=== PATIENT | female | born 1970 ===

== ENCOUNTER 2016-06-13 16:19 | Emergency (ER) | payer OTHER ==
[2016-06-13 16:19] VITALS: BMI 41.1
[2016-06-13 16:41] VITALS: BP 154/80; RESP 16; TEMP 98; O2SAT 99
[2016-06-13] MEDS ORDERED: Sodium Chloride 0.9% 1,000 ML IV STA (17:03)
[2016-06-13 17:30] LABS: BASO # 0.1 K/uL (0.0-0.2); EOS # 0.1 K/uL (0.0-0.7); EOS % 0.6 % (0.0-4.0); HEMATOCRIT 40.2 % (34.0-47.0); LYMPH # 2.2 K/uL (1.0-4.3); LYMPH % 19.8 % (20.0-40.0); MEAN CELL VOLUME 84.4 fl (81.0-99.0); MEAN CORPUSCULAR HEMOGLOBIN 27.5 pg (27.0-31.0); MEAN CORPUSCULAR HGB CONC 32.6 g/dL (33.0-37.0); MEAN PLATELET VOLUME 9.2 fl (7.2-11.7); MONO # 0.5 K/uL (0.0-0.8); MONO % 4.8 % (0.0-10.0); NEUT # 8.1 K/uL (1.8-7.0); NEUT % 73.8 % (50.0-75.0); RED CELL DISTRIBUTION WIDTH 13.6 % (11.5-14.5); WHITE BLOOD COUNT 10.9 K/uL (4.8-10.8)
[2016-06-13 17:42] LABS: ALB/GLOB RATIO 1.2 (1.0-2.1); ALKALINE PHOSPHATASE 62 U/L (38-126); ALT/SGPT 27 U/L (9-52); AST/SGOT 28 U/L (14-36); BILIRUBIN,TOTAL 0.7 mg/dl (0.2-1.3); BLOOD UREA NITROGEN 13 mg/dl (7-17); CALCIUM 9.4 mg/dL (8.4-10.2); CARBON DIOXIDE 26 mmol/L (22-30); CHLORIDE 102 mmol/L (98-107); GFR AFRICAN-AMERICAN > 60; GLUCOSE,RANDOM 120 mg/dL (65-105); SODIUM 142 mmol/l (132-148); TOTAL PROTEIN 7.7 G/DL (6.3-8.2)
[2016-06-13 17:50] LABS: RBC URINE 1 /hpf (0-3); URINE BILIRUBIN NEGATIVE (NEGATIVE); URINE BLOOD NEGATIVE (NEGATIVE); URINE COLOR YELLOW (YELLOW); URINE GLUCOSE (UA) NEG (Normal); URINE KETONE NEGATIVE (NEGATIVE); URINE LEUKOCYTE ESTERASE NEG Leu/uL (Negative); URINE PROTEIN NEGATIVE (NEGATIVE); URINE UROBILINOGEN 0.2-1.0 mg/dL (0.2-1.0); WBC URINE 1 /hpf (0-5)
--- NOTE | 2016-06-13 17:59 | CT ---
PROCEDURE: CT HEAD WITHOUT CONTRAST. HISTORY: R side headache, facial pain COMPARISON: None available. TECHNIQUE: Axial computed tomography images were obtained through the head/brain without intravenous contrast. Radiation dose: Total exam DLP = 774 mGy-cm. This CT exam was performed using one or more of the following dose reduction techniques: Automated exposure control, adjustment of the mA and/or kV according to patient size, and/or use of iterative reconstruction technique. FINDINGS: HEMORRHAGE: No intracranial hemorrhage. BRAIN: No mass effect or edema. No atrophy or chronic microvascular ischemic changes. VENTRICLES: Unremarkable. No hydrocephalus. CALVARIUM: Unremarkable. PARANASAL SINUSES: Unremarkable as visualized. No significant inflammatory changes. MASTOID AIR CELLS: Unremarkable as visualized. No inflammatory changes. OTHER FINDINGS: None. IMPRESSION: Normal CT of the Head.
--- NOTE | 2016-06-13 18:53 | ED PDOC ---
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 Denies fever, weakness, change in speech, vision, sensation or balance, or chest pain, SOB or palpitations. Denies dental pain, eye pain or swelling or redness to eye. Past Medical History Reviewed: Historical Data, Nursing Documentation, Vital Signs Vital Signs: Last Vital Signs Temp 98.0 F 06/13/16 16:32 Pulse 93 H 06/13/16 16:32 Resp 16 06/13/16 16:32 BP 154/80 H 06/13/16 16:32 Pulse Ox 99 06/13/16 16:32 - Medical History PMH: Asthma, GERD - Surgical History Surgical History: No Surg Hx - Family History Family History: States: Unknown Family Hx - Living Arrangements Living Arrangements: With Family - Social History Current smoker - smoking cessation education provided: No Alcohol: None - Home Medications Home Medications: Ambulatory Orders Medication Instructions Recorded traMADol [Ultram] 50 mg PO Q8 #10 tab 03/01/16 traMADol [Ultram] 50 mg PO TID PRN #12 tab 06/13/16 - Allergies Allergies/Adverse Reactions: Allergies Allergy/AdvReac Type Severity Reaction Status Date / Time ibuprofen [From Motrin] Allergy NAUSEA Verified 01/08/16 11:44 Review of Systems ROS Statement: Except As Marked, All Systems Reviewed And Found Negative Constitutional: Negative for: Fever, Chills Eyes: Negative for: Pain, Vision Change ENT: Positive for: Other (facial burning, no rash). Negative for: Ear Pain, Nose Pain, Nose Congestion, Mouth Pain, Throat Pain Cardiovascular: Negative for: Chest Pain, Palpitations Respiratory: Negative for: Cough, Shortness of Breath Gastrointestinal: Negative for: Nausea, Vomiting, Abdominal Pain Genitourinary Female: Negative for: Dysuria, Frequency Musculoskeletal: Negative for: Neck Pain, Shoulder Pain Skin: Negative for: Rash, Lesions, Jaundice Neurological: Positive for: Headache, Dizziness. Negative for: Weakness, Numbness, Incoordination, Change in Speech, Confusion, Seizures Psych: Negative for: Anxiety, Depression Physical Exam - Reviewed Nursing Documentation Reviewed: Yes Vital Signs Reviewed: Yes - Physical Exam Appears: Positive for: Well, Non-toxic, No Acute Distress Head Exam: Positive for: ATRAUMATIC, NORMAL INSPECTION, NORMOCEPHALIC Skin: Positive for: Normal Color, Warm, DRY Eye Exam: Positive for: Normal appearance, EOMI, PERRL, Other (no periorbital edema, erythema, cornea no clouding or lesions ). Negative for: Periorbital swelling, Periorbital tenderness, Conjunctival injection ENT: Positive for: Normal ENT Inspection Neck: Positive for: Normal, Painless ROM Cardiovascular/Chest: Positive for: Regular Rate, Rhythm Respiratory: Positive for: CNT, Normal Breath Sounds Gastrointestinal/Abdominal: Positive for: Normal Exam, Bowel Sounds, Soft. 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 Negative for: Motor/Sensory Deficits - Laboratory Results Result Diagrams: 06/13/16 17:20 06/13/16 17:20 - ECG ECG: Positive for: Interpreted By Me ECG Rhythm: Positive for: Normal QRS, Normal ST Segment, Sinus Rhythm. Negative for: ST/T Changes Rate: 81 O2 Sat by Pulse Oximetry: 99 Pulse Ox Interpretation: Normal Medical Decision Making Medical Decision Making: Workup initiated for atypical headache. CT brain performed and report reviewed, normal brain per radiologist. labs and UA reviewed, unremarkable. Given tylenol and IVF with complete resolution of symptoms. Explained via healthcare interpreter early impressions, watch for development of herpetic rash to face or scalp- none present currently. Drink plenty of fluids, followup PMD 2-3 days. Disposition - Clinical Impression Clinical Impression: Headache, Facial burning - Patient ED Disposition Is Patient to be Admitted: No Counseled Patient/Family Regarding: Studies Performed, Diagnosis, Need For Followup, Rx Given - Disposition Referrals: Arsh Gómez MD [Staff Provider] - Disposition: Routine/Home Disposition Time: 18:57 Condition: STABLE Additional Instructions: See neurologist for further testing if symptoms persist. See PMD or return to ER for development of any rash, eye pain, change in vision/ speech or strength. Prescriptions: traMADol [Ultram] 50 mg PO TID PRN #12 tab PRN Reason: Pain, Moderate (4-7) Instructions: General Headache (ED), Fatigue (ED), Weakness (GEN) Print Language: AFGHAN
[2016-06-13 18:57] VITALS: PULSE 81
--- NOTE | 2016-06-14 20:26 | CARD ---
APPROVED REPORT EKG Measurement Heart [id number] <Conclusion> Normal sinus rhythm Normal ECG
== END 2016-06-13 19:03 | disposition home or self-care (01) ==
LOC: H.ER 16:19
DX: R51 Headache (principal)

== ENCOUNTER 2016-09-11 10:24 | Emergency (ER) | payer OTHER ==
[2016-09-11 10:35] VITALS: TEMP 97.6
[2016-09-11] MEDS ORDERED: Sodium Chloride 0.9% 1,000 ML IV STA (11:12)
[2016-09-11 11:54] LABS: MEAN CORPUSCULAR HEMOGLOBIN 27.9 pg (27.0-31.0); MEAN CORPUSCULAR HGB CONC 33.2 g/dL (33.0-37.0); RBC 4.66 Mil/uL (3.80-5.20); WHITE BLOOD COUNT 6.1 K/uL (4.8-10.8)
[2016-09-11 12:05] LABS: ALB/GLOB RATIO 1.3 (1.0-2.1); ALT/SGPT 48 U/L (9-52); AST/SGOT 23 U/L (14-36); BLOOD UREA NITROGEN 18 mg/dl (7-17); CALCIUM 9.1 mg/dL (8.4-10.2); GFR AFRICAN-AMERICAN > 60; GFR NON-AFRICAN AMERICAN > 60; LIPASE 133 U/L (23-300)
[2016-09-11] MEDS ORDERED: Alum-Mag Hydrox-Simethicone Susp (30 mL) PO STA (12:33)
--- NOTE | 2016-09-11 12:36 | ED PDOC ---
HPI: Abdomen Time Seen by Provider: 09/11/16 10:36 Chief Complaint (Nursing): Abdominal Pain Chief Complaint (Provider): Abdominal pain, nausea History Per: Patient History/Exam Limitations: no limitations Onset/Duration Of Symptoms: Days Outside of [place] travel?: No Current Symptoms Are (Timing): Still Present Severity: Moderate Location Of Pain/Discomfort: Epigastric, LUQ Quality Of Discomfort: Dull, Cramping Associated Symptoms: Nausea, Loss Of Appetite, Other (Pt states she has been tolerating juice ). denies: Fever, Vomiting Exacerbating Factors: None Alleviating Factors: None Last Bowel Movement: Yesterday Additional Complaint(s): PT denies similar in the past. No fever/chills. PT is tolerating liquids Past Medical History Reviewed: Historical Data, Nursing Documentation, Vital Signs Vital Signs: Last Vital Signs Temp 97.6 F 09/11/16 10:34 Pulse 78 09/11/16 10:34 Resp 20 09/11/16 10:34 BP 153/84 H 09/11/16 10:34 Pulse Ox 99 09/11/16 12:36 - Medical History PMH: Asthma, GERD - Surgical History Surgical History: No Surg Hx - Family History Family History: States: Unknown Family Hx - Living Arrangements Living Arrangements: With Family - Social History Current smoker - smoking cessation education provided: No Alcohol: None Drugs: Denies - Home Medications Home Medications: Ambulatory Orders Medication Instructions Recorded traMADol [Ultram] 50 mg PO Q8 #10 tab 03/01/16 traMADol [Ultram] 50 mg PO TID PRN #12 tab 06/13/16 Cyclobenzaprine [Cyclobenzaprine 10 mg PO TID PRN #20 tab 08/18/16 HCl] predniSONE [Prednisone] 20 mg PO BID #10 tab 08/18/16 traMADol [Ultram] 50 mg PO TID PRN #15 tab 08/18/16 Famotidine [Pepcid] 20 mg PO BID #28 tab 09/11/16 Ondansetron [Zofran Odt] 4 mg PO Q4H PRN #10 odt 09/11/16 - Allergies Allergies/Adverse Reactions: Allergies Allergy/AdvReac Type Severity Reaction Status Date / Time ibuprofen [From Motrin] Allergy NAUSEA Verified 09/11/16 10:39 Review of Systems ROS Statement: Except As Marked, All Systems Reviewed And Found Negative Gastrointestinal: Positive for: Nausea, Abdominal Pain Physical Exam - Reviewed Nursing Documentation Reviewed: Yes Vital Signs Reviewed: Yes - Physical Exam Appears: Positive for: Well, Non-toxic, No Acute Distress Head Exam: Positive for: ATRAUMATIC, NORMAL INSPECTION, NORMOCEPHALIC Skin: Positive for: Normal Color, Warm, DRY Eye Exam: Positive for: Normal appearance ENT: Positive for: Normal ENT Inspection Neck: Positive for: Normal, Painless ROM Cardiovascular/Chest: Positive for: Regular Rate, Rhythm Respiratory: Positive for: CNT, Normal Breath Sounds Gastrointestinal/Abdominal: Positive for: Bowel Sounds, Soft, Tenderness ( Epigastric, LUQ). Negative for: Normal Exam, Guarding, Rebound Back: Positive for: Normal Inspection Extremity: Positive for: Normal ROM Neurologic/Psych: Positive for: Alert, Oriented - Laboratory Results Result Diagrams: 09/11/16 11:40 09/11/16 11:40 - ECG O2 Sat by Pulse Oximetry: 99 Medical Decision Making Medical Decision Making: CBC, CMP, lipase and urine normal. Pt reports feeling better on re-evaluation. Disposition - Clinical Impression Clinical Impression: Gastritis - Patient ED Disposition Is Patient to be Admitted: No Counseled Patient/Family Regarding: Diagnosis, Need For Followup, Rx Given - Disposition Referrals: [facility] [Outside] [facility] [Outside] Disposition: Routine/Home Disposition Time: 13:17 Condition: GOOD Prescriptions: Famotidine [Pepcid] 20 mg PO BID #28 tab Ondansetron [Zofran Odt] 4 mg PO Q4H PRN #10 odt PRN Reason: Nausea Instructions: Gastritis (ED) Print Language: ITALIAN
[2016-09-11] MEDS ORDERED: Alum-Mag Hydrox-Simethicone Susp (30 mL) ONE (13:11)
[2016-09-11 14:04] VITALS: BP 132/79; PULSE 75; RESP 14; O2SAT 100
== END 2016-09-11 13:45 | disposition home or self-care (01) ==
LOC: H.ER 10:24
DX: K29.70 Gastritis, unspecified, without bleeding (principal); J45.909 Unspecified asthma, uncomplicated; K21.9 Gastro-esophageal reflux disease without esophagitis

== ENCOUNTER 2017-01-24 20:17 | Emergency (ER) | payer SELFPAY ==
[2017-01-24 20:49] VITALS: BP 158/68; PULSE 96; RESP 18; TEMP 97.9; O2SAT 98
--- NOTE | 2017-01-24 21:03 | ED PDOC ---
HPI: Headache Time Seen by Provider: 01/24/17 21:01 Chief Complaint (Nursing): Headache Chief Complaint (Provider): headache History Per: Patient (46 y/o femlae here with pain noted forehead/facial region x 4 days. Denies any nasal discharge. States she has similar symptoms yearly during winter and has been treated for sinusitis in past. Denies any fevers or chills. Denies any photophobia/vomiting/nuchal rigidity. 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 - Family History Family History: States: Unknown Family Hx - Home Medications Home Medications: Ambulatory Orders Medication Instructions Recorded traMADol [Ultram] 50 mg PO Q8 #10 tab 03/01/16 traMADol [Ultram] 50 mg PO TID PRN #12 tab 06/13/16 Cyclobenzaprine [Cyclobenzaprine 10 mg PO TID PRN #20 tab 08/18/16 HCl] predniSONE [Prednisone] 20 mg PO BID #10 tab 08/18/16 traMADol [Ultram] 50 mg PO TID PRN #15 tab 08/18/16 Famotidine [Pepcid] 20 mg PO BID #28 tab 09/11/16 Ondansetron [Zofran Odt] 4 mg PO Q4H PRN #10 odt 09/11/16 Amoxicillin 875 mg PO BID #20 tablet 01/24/17 Fluticasone Nasal [Flonase] 1 spray NS DAILY #1 bottle 01/24/17 Naproxen 1 tab PO Q12 PRN #14 tab 01/24/17 Pseudoephedrine [Sudafed Tab] 60 mg PO Q6 PRN #10 tab 01/24/17 - Allergies Allergies/Adverse Reactions: Allergies Allergy/AdvReac Type Severity Reaction Status Date / Time ibuprofen [From Motrin] Allergy NAUSEA Verified 09/11/16 10:39 Review of Systems ROS Statement: Except As Marked, All Systems Reviewed And Found Negative ENT: Positive for: Other (face pain/head pain) Physical Exam - Reviewed Nursing Documentation Reviewed: Yes Vital Signs Reviewed: Yes - Physical Exam Appears: Positive for: Well, Non-toxic, No Acute Distress Head Exam: Positive for: ATRAUMATIC, NORMAL INSPECTION, NORMOCEPHALIC Skin: Positive for: Normal Color, Warm, DRY Eye Exam: Positive for: EOMI, Normal appearance, PERRL ENT: Positive for: Other (facial tenderness noted/frontal tenderness noted) Neck: Positive for: Normal, Painless ROM Cardiovascular/Chest: Positive for: Regular Rate, Rhythm Respiratory: Positive for: CNT, Normal Breath Sounds Gastrointestinal/Abdominal: Positive for: Normal Exam, Bowel Sounds, Soft Back: Positive for: Normal Inspection Extremity: Positive for: Normal ROM Neurologic/Psych: Positive for: Alert, Oriented - ECG O2 Sat by Pulse Oximetry: 98 - Progress ED Course And Treament: Toradol 30 mg IM x 1 dose Acetaminophen 650 mg x 1 dose Disposition - Clinical Impression Clinical Impression: Sinusitis - Patient ED Disposition Is Patient to be Admitted: No - Disposition Referrals: Blane Epstein MD [Staff Provider] - Disposition: Routine/Home Disposition Time: 21:04 Condition: STABLE Additional Instructions: SI SIGA EL DOLOR DE GEORGE PARA 3 POTTER MAS, PUEDE EMPAZAR AUGMENTIN (ANTIBIOTICO) PARA INFECTION VIERNES. Prescriptions: Amoxicillin 875 mg PO BID #20 tablet Fluticasone Nasal [Flonase] 1 spray NS DAILY #1 bottle Naproxen 1 tab PO Q12 PRN #14 tab PRN Reason: Pain, Moderate (4-7) Pseudoephedrine [Sudafed Tab] 60 mg PO Q6 PRN #10 tab PRN Reason: Nasal Congestion Instructions: Sinusitis (ED) Forms: [facility] ED School/Work Excuse, [employer] (Palauan) Print Language: TRISTANIAN
== END 2017-01-24 21:30 | disposition home or self-care (01) ==
LOC: H.ER 20:17
DX: J32.9 Chronic sinusitis, unspecified (principal); J45.909 Unspecified asthma, uncomplicated; K21.9 Gastro-esophageal reflux disease without esophagitis
CPT/HCPCS: 96372; 99283; J1885

== ENCOUNTER 2017-04-21 07:22 | Observation (INO) | payer SELFPAY ==
[2017-04-21 07:39] VITALS: BMI 40.3
[2017-04-21 08:57] LABS: BLOOD UREA NITROGEN 17 mg/dl (7-17); CALCIUM 8.9 mg/dL (8.4-10.2); GFR AFRICAN-AMERICAN > 60; GFR NON-AFRICAN AMERICAN > 60
--- NOTE | 2017-04-21 09:05 | RAD ---
PROCEDURE: CHEST RADIOGRAPH, 1 VIEW HISTORY: chest pain COMPARISON: Chest radiograph dated 11/06/2011. FINDINGS: LUNGS: Prominence of the pulmonary vasculature may be secondary to AP technique and/or pulmonary vascular congestion. PLEURA: No pneumothorax or pleural fluid seen. CARDIOVASCULAR: Cardiomediastinal silhouette appears enlarged; however, this cannot be accurately assessed on an AP projection. OSSEOUS STRUCTURES: Unchanged. VISUALIZED UPPER ABDOMEN: Normal. OTHER FINDINGS: None. IMPRESSION: Prominence of the pulmonary vasculature may be secondary to AP technique and/or pulmonary vascular congestion. No focal consolidation or pleural effusion.
[2017-04-21 09:08] LABS: BASO % 0.7 % (0.0-2.0); EOS # 0.1 K/uL (0.0-0.7); EOS % 1.2 % (0.0-4.0); HEMOGLOBIN 13.1 g/dL (12.0-16.0); LYMPH # 1.9 K/uL (1.0-4.3); LYMPH % 32.1 % (20.0-40.0); MEAN CELL VOLUME 84.5 fl (81.0-99.0); MEAN CORPUSCULAR HEMOGLOBIN 27.9 pg (27.0-31.0); MEAN PLATELET VOLUME 8.5 fl (7.2-11.7); MONO # 0.4 K/uL (0.0-0.8); MONO % 6.7 % (0.0-10.0); NEUT # 3.6 K/uL (1.8-7.0); NEUT % 59.3 % (50.0-75.0); NRBC % 0.1 % (0.0-0.0); RBC 4.7 Mil/uL (3.80-5.20); RED CELL DISTRIBUTION WIDTH 13.8 % (11.5-14.5)
--- NOTE | 2017-04-21 09:45 | CT ---
PROCEDURE: CT HEAD WITHOUT CONTRAST. HISTORY: headache COMPARISON: CT head dated 06/13/2016. TECHNIQUE: Axial computed tomography images were obtained through the head/brain without intravenous contrast. Radiation dose: Total exam DLP = 871.5 mGy-cm. This CT exam was performed using one or more of the following dose reduction techniques: Automated exposure control, adjustment of the mA and/or kV according to patient size, and/or use of iterative reconstruction technique. FINDINGS: HEMORRHAGE: No intracranial hemorrhage. BRAIN: No mass effect or edema. No atrophy or chronic microvascular ischemic changes. VENTRICLES: Unremarkable. No hydrocephalus. CALVARIUM: Unremarkable. PARANASAL SINUSES: Unremarkable as visualized. No significant inflammatory changes. MASTOID AIR CELLS: Unremarkable as visualized. No inflammatory changes. OTHER FINDINGS: None. IMPRESSION: No acute intracranial pathology.
--- NOTE | 2017-04-21 10:34 | ED PDOC ---
HPI: General Adult Time Seen by Provider: 04/21/17 08:02 Chief Complaint (Nursing): Chest Pain Chief Complaint (Provider): headache and chest pain History Per: Patient History/Exam Limitations: no limitations Onset/Duration Of Symptoms: Days (1x) Current Symptoms Are (Timing): Constant Additional Complaint(s): Steph Pablo, a 46 year old female with a past medical history of GERD and migraines presents to the ED complaining of constant headache onset yesterday (04/20/17) and chest pain onset today morning. Reports she took Tylenol for the headache and states she has chest pain due to GERD with associated symptoms of difficulty breathing. Denies fever, weakness, abdominal pain, vomiting or diarrhea. Of note: patient goes to the clinic PMD: Non [facility] Provider Past Medical History Reviewed: Historical Data, Nursing Documentation, Vital Signs Vital Signs: Last Vital Signs Temp 97.7 F 04/22/17 12:00 Pulse 77 04/22/17 12:00 Resp 16 04/22/17 12:00 BP 145/76 04/22/17 12:00 Pulse Ox 96 04/22/17 12:00 - Medical History PMH: Asthma, GERD, Migraine - Surgical History Other surgeries: hysterectomy - Family History Family History: States: Unknown Family Hx - Home Medications Home Medications: Ambulatory Orders Medication Instructions Recorded Magnesium Glycinate [Mag Glycinate] 600 mg PO DAILY 30 Days #30 tablet 04/22/17 - Allergies Allergies/Adverse Reactions: Allergies Allergy/AdvReac Type Severity Reaction Status Date / Time ibuprofen [From Motrin] Allergy NAUSEA Verified 09/11/16 10:39 Review of Systems ROS Statement: Except As Marked, All Systems Reviewed And Found Negative Constitutional: Negative for: Fever, Weakness Cardiovascular: Positive for: Chest Pain Respiratory: Positive for: Shortness of Breath Gastrointestinal: Negative for: Vomiting, Abdominal Pain, Diarrhea Neurological: Positive for: Headache Physical Exam - Reviewed Nursing Documentation Reviewed: Yes Vital Signs Reviewed: Yes - Physical Exam Appears: Positive for: Well, Non-toxic, No Acute Distress Head Exam: Positive for: ATRAUMATIC, NORMAL INSPECTION, NORMOCEPHALIC Skin: Positive for: Normal Color, Warm, Dry Eye Exam: Positive for: EOMI, Normal appearance, PERRL ENT: Positive for: Normal ENT Inspection Neck: Positive for: Normal, Painless ROM, Supple. Negative for: Decreased ROM Cardiovascular/Chest: Positive for: Regular Rate, Rhythm. Negative for: Murmur , Bradycardia Respiratory: Positive for: Normal Breath Sounds. Negative for: Accessory Muscle Use, Wheezing, Respiratory Distress Gastrointestinal/Abdominal: Positive for: Normal Exam, Bowel Sounds, Soft. Negative for: Tenderness, Guarding Back: Positive for: Normal Inspection. Negative for: L CVA Tenderness, R CVA Tenderness Extremity: Positive for: Normal ROM. Negative for: Tenderness, Pedal Edema, Deformity Neurologic/Psych: Positive for: Alert, Oriented (x3) - Laboratory Results Result Diagrams: 04/22/17 06:04 04/22/17 06:04 - ECG O2 Sat by Pulse Oximetry: 99 (RA) Pulse Ox Interpretation: Normal Medical Decision Making Medical Decision Making: Time: 08:23 Initial Impression: Headache and Chest pain Differential Diagnosis includes but is not limited to: Hypertensive encephalopathy, migraine, ACS and CHF Initial Plan: --Head without contrast [CT] --EKG --BNP --BMP --Troponin I --Dipstick --CBC --Chest X-ray --Reevaluation Time: 10:37 FINDINGS: LUNGS: Prominence of the pulmonary vasculature may be secondary to AP technique and/or pulmonary vascular congestion. PLEURA: No pneumothorax or pleural fluid seen. CARDIOVASCULAR: Cardiomediastinal silhouette appears enlarged; however, this cannot be accurately assessed on an AP projection. OSSEOUS STRUCTURES: Unchanged. VISUALIZED UPPER ABDOMEN: Normal. OTHER FINDINGS: None. IMPRESSION: Prominence of the pulmonary vasculature may be secondary to AP technique and/or pulmonary vascular congestion. No focal consolidation or pleural effusion. Time: 10:38 FINDINGS: HEMORRHAGE: No intracranial hemorrhage. BRAIN: No mass effect or edema. No atrophy or chronic microvascular ischemic changes. VENTRICLES: Unremarkable. No hydrocephalus. CALVARIUM: Unremarkable. PARANASAL SINUSES: Unremarkable as visualized. No significant inflammatory changes. MASTOID AIR CELLS: Unremarkable as visualized. No inflammatory changes. OTHER FINDINGS: None. IMPRESSION: No acute intracranial pathology. Documented by Loco Cox acting as a scribe for Beverly Tate MD. All medical record entries made by the Scribe were at my direction and personally dictated by me. I have reviewed the chart and agree that the record accurately reflects my personal performance of the history, physical exam, medical decision making, and the department course for this patient. I have also personally directed, reviewed, and agree with the discharge instructions and disposition. Disposition - Clinical Impression Clinical Impression: Chest pain, Acute headache - Patient ED Disposition Is Patient to be Admitted: Yes Discussed With : Daniele Boateng Doctor Will See Patient In The: ED Counseled Patient/Family Regarding: Studies Performed, Diagnosis - Disposition Disposition Time: 12:28 Condition: FAIR - Pt Status Changed To: Hospital Disposition Of: Observation - POA Present On Arrival: None GABE Risk Score for UA/NSTEMI - GABE Risk Score Age > 64: NO 3 or more CAD Risk Factors: NO Known CAD (Stenosis greater than 50%): NO Aspirin use in past 7 days: NO Severe Angina: YES EKG ST changes greater than 0.5mm: NO Positive Cardiac Marker: NO GABE Score: 1 % risk at 14 days of: all cause mortality, new or recurrent OH, or severe recurrent ischemia requiring urgen revascularization: 5%
--- NOTE | 2017-04-21 17:08 | CP.PCM.HP ---
History of Present Illness - History of Present Illness History of Present Illness: CC: chest pain HPI: The patient is a 46 y/o woman w/ pmh of GERD and migraines presents to ED chronic headache and chest pain this morning. The patient reports the chest pain started today @ 01:00 in the morning, mid-sternal, while laying down, pressure-like in nature, non-radiating, alleviated w/ breathing, not worsened by anything. The patient also reports chronic migraine headache for 3 months, pulsating in nature, in parietal regions bilaterally, lasting >6 hours, intermittent, not alleviated w/ OTC tylenol. The patient denies dizziness, SOB , abdominal pain, nausea, vomiting, diarrhea, dysuria, or fever. ED course: vitals: 98.0 F, 66 beats/min, 151/76 mm Hg, resp 18, O2 99% RA CBC: 6.0>13.1/39.7<214 BMP: 141/4.5, 105/26, 17/0.6, glucose 108 Troponin I: <0.0120 pro-BNP: 63.7 EKG: NSR, no acute ST elevation/depression, no T wave inversion/peaking, no prolonged QTc,QRS, OR Head without contrast [CT]: No acute intracranial pathology Chest X-ray: No focal consolidation or pleural effusion given toradol 30 mg IV once given reglan 10 mg IV once PMD: Dr. Felix (), [facility] PMH: GERD, migraine allergies: motrin (upset stomach) meds: none PSH: hysterectomy 2014 @ [facility] FAM: mother 76 has HTN and father 4 years ago at 70 y/o from [place] SOC: denies smoking, alcohol, drugs ROS: 12 points assessed and negative unless otherwise reported in HPI Present on Admission - Present on Admission Any Indicators Present on Admission: No History of DVT/PE: No History of Uncontrolled Diabetes: No Urinary Catheter: No Decubitus Ulcer Present: No Review of Systems - Review of Systems All systems: reviewed and no additional remarkable complaints except - Constitutional Constitutional: As Per HPI, Headache. absent: Fever - EENT Eyes: absent: Change in Vision - Cardiovascular Cardiovascular: As Per HPI, Chest Pain. absent: Palpitations, Pedal Edema - Respiratory Respiratory: absent: Dyspnea, Wheezing - Gastrointestinal Gastrointestinal: absent: Abdominal Pain, Diarrhea, Nausea, Vomiting - Genitourinary Genitourinary: absent: Dysuria - Reproductive: Female Reproductive:Female: S/P Hysterectomy - Menstruation Menstruation: S/P Hysterectomy - Integumentary Integumentary: absent: Rash - Neurological Neurological: Headaches. absent: Dizziness Past Patient History - Infectious Disease Hx of Infectious Diseases: None - Past Social History Smoking Status: Never Smoked - PULMONARY Hx Asthma: Yes - NEUROLOGICAL Hx Neurological Disorder: Yes - PSYCHIATRIC Hx Substance Use: No - SURGICAL HISTORY Hx Surgeries: Yes Hx Hysterectomy: Yes Other/Comment: fibroid - ANESTHESIA Hx Anesthesia: Yes Meds Allergies/Adverse Reactions: Allergies Allergy/AdvReac Type Severity Reaction Status Date / Time ibuprofen [From Motrin] Allergy NAUSEA Verified 09/11/16 10:39 Physical Exam - Constitutional Appears: No Acute Distress - Head Exam Head Exam: ATRAUMATIC, NORMAL INSPECTION, NORMOCEPHALIC - Eye Exam Eye Exam: Normal appearance - ENT Exam ENT Exam: Mucous Membranes Moist - Neck Exam Neck exam: Positive for: Full Rom. Negative for: Tenderness - Respiratory Exam Respiratory Exam: Clear to Auscultation Bilateral, NORMAL BREATHING PATTERN. absent: Decreased Breath Sounds, Rales, Rhonchi, Wheezes, Respiratory Distress - Cardiovascular Exam Cardiovascular Exam: REGULAR RHYTHM, RRR. absent: Tachycardia - GI/Abdominal Exam GI & Abdominal Exam: Normal Bowel Sounds, Soft. absent: Distended, Tenderness - Extremities Exam Extremities exam: Positive for: normal inspection. Negative for: calf tenderness, pedal edema, tenderness - Neurological Exam Neurological exam: Alert, CN II-XII Intact, Oriented x3 - Skin Skin Exam: Dry, Intact, Normal Color, Warm Results - Vital Signs Recent Vital Signs: Last Vital Signs Temp 98.9 F 04/21/17 14:15 Pulse 72 04/21/17 14:15 Resp 18 04/21/17 14:15 BP 132/86 04/21/17 14:15 Pulse Ox 99 04/21/17 14:15 - Labs Result Diagrams: 04/21/17 08:40 04/21/17 08:24 Labs: Laboratory Results - last 24 hr 04/21/17 04/21/17 04/21/17 08:24 08:40 10:11 WBC 6.0 RBC 4.70 Hgb 13.1 Hct 39.7 MCV 84.5 MCH 27.9 MCHC 33.0 RDW 13.8 Plt Count 214 MPV 8.5 Neut % (Auto) 59.3 Lymph % (Auto) 32.1 [place] % (Auto) 6.7 Eos % (Auto) 1.2 Baso % (Auto) 0.7 Neut # (Auto) 3.6 Lymph # (Auto) 1.9 [place] # (Auto) 0.4 Eos # (Auto) 0.1 Baso # (Auto) 0.0 Sodium 141 Potassium 4.5 Chloride 105 Carbon Dioxide 26 Anion Gap 15 BUN 17 Creatinine 0.6 L Est GFR ( Amer) > 60 Est GFR (Non-Af Amer) > 60 Random Glucose 108 H Calcium 8.9 Troponin I < 0.0120 NT-Pro-B Natriuret Pep 63.7 Assessment & Plan - Assessment and Plan (Free Text) Assessment: The patient is a 46 y/o woman w/ pmh of GERD and migraines presents to ED chronic headache and chest pain this morning Plan: Chest Pain - 2/2 GERD vs r/o ACS - vitals: 98.0 F, 66 beats/min, 151/76 mm Hg, resp 18, O2 99% RA - CBC: 6.0>13.1/39.7<214 - BMP: 141/4.5, 105/26, 17/0.6, glucose 108 - Troponin I: <0.0120 - pro-BNP: 63.7 - EKG: NSR, no acute ST elevation/depression, no T wave inversion/peaking, no prolonged QTc,QRS, OR - Chest X-ray: No focal consolidation or pleural effusion - f/u troponin x2 - f/u repeat EKG - monitor for acute changes Headache - reports history of migraine but not on medication - worsened in past 3 months - Head without contrast [CT]: No acute intracranial pathology - given toradol 30 mg IV once - given reglan 10 mg IV once - ordered dexamethasone 10 mg IV once - ordered prochlorperazine 10 mg IV once - monitor for acute changes - f/u CBC, CMP GERD - patient not on medication Elevated BP - currently normotensive Prophylactic measures - DVT: lovenox 40 mg SC daily - GI: protonix 40 mg PO daily
[2017-04-21] MEDS ORDERED: Dexamethasone 10 MG in Sodium Chloride 0.9% 50 ML IVPB ONE (17:30)
--- NOTE | 2017-04-21 19:01 | CARD ---
APPROVED REPORT EKG Measurement Heart [id number] <Conclusion> Normal sinus rhythm Normal ECG
[2017-04-21] MEDS ORDERED: Pneumococcal 23-Valent Vaccine IM ONE (19:40)
[2017-04-22 06:57] LABS: BASO % 0.2 % (0.0-2.0); HEMOGLOBIN 13.8 g/dL (12.0-16.0); LYMPH # 1.1 K/uL (1.0-4.3); LYMPH % 15.3 % (20.0-40.0); MEAN CELL VOLUME 84.7 fl (81.0-99.0); MEAN CORPUSCULAR HEMOGLOBIN 28.1 pg (27.0-31.0); MEAN CORPUSCULAR HGB CONC 33.2 g/dL (33.0-37.0); MEAN PLATELET VOLUME 8.8 fl (7.2-11.7); MONO # 0.1 K/uL (0.0-0.8); MONO % 0.9 % (0.0-10.0); NEUT % 83.6 % (50.0-75.0); RBC 4.92 Mil/uL (3.80-5.20); RED CELL DISTRIBUTION WIDTH 13.7 % (11.5-14.5); WHITE BLOOD COUNT 7.2 K/uL (4.8-10.8)
[2017-04-22 07:11] LABS: ALB/GLOB RATIO 1.2 (1.0-2.1); ALBUMIN 4.1 g/dL (3.5-5.0); ALT/SGPT 31 U/L (9-52); AST/SGOT 20 U/L (14-36); BLOOD UREA NITROGEN 20 mg/dl (7-17); CALCIUM 9.6 mg/dL (8.4-10.2); GFR AFRICAN-AMERICAN > 60; GFR NON-AFRICAN AMERICAN > 60
[2017-04-22 08:25] VITALS: RESP 16
[2017-04-22] MEDS ORDERED: Pantoprazole 40 mg EC Tab PO SCH (09:00)
[2017-04-22] MEDS ORDERED: Enoxaparin 40 mg Syringe SC SCH (09:00)
--- NOTE | 2017-04-22 10:15 | CARD ---
APPROVED REPORT EKG Measurement Heart [id number] <Conclusion> Normal sinus rhythm Normal ECG
[2017-04-22 12:27] VITALS: BP 145/76; PULSE 77; TEMP 97.7
--- NOTE | 2017-04-22 12:55 | CP.PCM.DIS ---
Provider - Provider Date of Admission: 04/21/17 12:28 Attending physician: Magali Carl MD Time Spent in preparation of Discharge (in minutes): 15 Hospital Course - Lab Results Lab Results: Most Recent Lab Values WBC 7.2 K/uL (4.8-10.8) 04/22/17 06:04 RBC 4.92 Mil/uL (3.80-5.20) 04/22/17 06:04 Hgb 13.8 g/dL (12.0-16.0) 04/22/17 06:04 Hct 41.7 % (34.0-47.0) 04/22/17 06:04 MCV 84.7 fl (81.0-99.0) 04/22/17 06:04 MCH 28.1 pg (27.0-31.0) 04/22/17 06:04 MCHC 33.2 g/dL (33.0-37.0) 04/22/17 06:04 RDW 13.7 % (11.5-14.5) 04/22/17 06:04 Plt Count 234 K/uL (130-400) 04/22/17 06:04 MPV 8.8 fl (7.2-11.7) 04/22/17 06:04 Neut % (Auto) 83.6 % (50.0-75.0) H 04/22/17 06:04 Lymph % (Auto) 15.3 % (20.0-40.0) L 04/22/17 06:04 [place] % (Auto) 0.9 % (0.0-10.0) 04/22/17 06:04 Eos % (Auto) 0.0 % (0.0-4.0) 04/22/17 06:04 Baso % (Auto) 0.2 % (0.0-2.0) 04/22/17 06:04 Neut # (Auto) 6.0 K/uL (1.8-7.0) 04/22/17 06:04 Lymph # (Auto) 1.1 K/uL (1.0-4.3) 04/22/17 06:04 [place] # (Auto) 0.1 K/uL (0.0-0.8) 04/22/17 06:04 Eos # (Auto) 0.0 K/uL (0.0-0.7) 04/22/17 06:04 Baso # (Auto) 0.0 K/uL (0.0-0.2) 04/22/17 06:04 Sodium 143 mmol/l (132-148) 04/22/17 06:04 Potassium 4.8 MMOL/L (3.6-5.0) 04/22/17 06:04 Chloride 104 mmol/L (98-107) 04/22/17 06:04 Carbon Dioxide 23 mmol/L (22-30) 04/22/17 06:04 Anion Gap 21 (10-20) H 04/22/17 06:04 BUN 20 mg/dl (7-17) H 04/22/17 06:04 Creatinine 0.7 mg/dl (0.7-1.2) 04/22/17 06:04 Est GFR ( Amer) > 60 04/22/17 06:04 Est GFR (Non-Af Amer) > 60 04/22/17 06:04 Random Glucose 171 mg/dL (65-105) H 04/22/17 06:04 Calcium 9.6 mg/dL (8.4-10.2) 04/22/17 06:04 Total Bilirubin 0.6 mg/dl (0.2-1.3) 04/22/17 06:04 AST 20 U/L (14-36) 04/22/17 06:04 ALT 31 U/L (9-52) 04/22/17 06:04 Alkaline Phosphatase 60 U/L (38-126) 04/22/17 06:04 Troponin I < 0.0120 ng/mL (0.00-0.120) 04/22/17 08:39 NT-Pro-B Natriuret Pep 63.7 pg/ml (0-450) 04/21/17 10:11 Total Protein 7.6 G/DL (6.3-8.2) 04/22/17 06:04 Albumin 4.1 g/dL (3.5-5.0) 04/22/17 06:04 Globulin 3.5 gm/dL (2.2-3.9) 04/22/17 06:04 Albumin/Globulin Ratio 1.2 (1.0-2.1) 02/17/18 06:04 - Hospital Course Hospital Course: The patient is a 46 y/o woman w/ pmh of GERD and migraines presents to ED chronic headache and chest pain. The patient on admission had elevated BP and migraine headache. CBC, CMP, pro-BNP, and troponins were all WNL. The EKG, head CT, and CXR were WNL. The patient was given toradol and reglan in the ED. The patient was admitted to [facility]. The patient was given tylenol 650 mg PO once, decadron 10 mg IV, and compazine 10 mg IV. The patient reports that the headache completely dissipated and her BP has become normotensive since headache improvement. The patient has been seen, examined, and deemed medically fit for discharge home. The patient is to follow up in [facility] or preferred PMD in [place] she mentioned in 1 week. The patient was discharged w/ magnesium glycinate 600 mg PO daily. Discharge Exam - Head Exam Head Exam: ATRAUMATIC, NORMAL INSPECTION, NORMOCEPHALIC - Eye Exam Eye Exam: Normal appearance - ENT Exam ENT Exam: Mucous Membranes Moist - Respiratory Exam Respiratory Exam: Clear to PA & Lateral, UNREMARKABLE. absent: Decreased Breath Sounds, Rales, Rhonchi, Wheezes, Respiratory Distress, Stridor - Cardiovascular Exam Cardiovascular Exam: REGULAR RHYTHM. absent: Tachycardia - GI/Abdominal Exam GI & Abdominal Exam: Normal Bowel Sounds, Soft. absent: Distended, Tenderness - Extremities Exam Extremities exam: normal inspection - Neurological Exam Neurological exam: Alert, CN II-XII Intact, Oriented x3 - Skin Skin Exam: Dry, Intact, Normal Color, Warm Discharge Plan - Discharge Medications Prescriptions: Magnesium Glycinate [Mag Glycinate] 600 mg PO DAILY 30 Days #30 tablet - Follow Up Plan Condition: FAIR Disposition: HOME/ ROUTINE Instructions: Migraine Headache (DC) Referrals: [facility] [Outside]
[2017-04-24 12:50] VITALS: O2SAT 99
== END 2017-04-22 14:59 | disposition home or self-care (01) ==
LOC: H.ER 07:22 → H.ERHOLD 12:28 → H.TEL 14:52
PROVIDERS: ADMIT Family Medicine Geriatric Medicine; ATTEND Family Medicine Geriatric Medicine
DX: R07.89 Other chest pain (principal); K21.9 Gastro-esophageal reflux disease without esophagitis; G43.909 Migraine, unspecified, not intractable, without status migrainosus; J45.909 Unspecified asthma, uncomplicated; Z23 Encounter for immunization; Z88.6 Allergy status to analgesic agent; Z82.49 Family history of ischemic heart disease and other diseases of the circulatory system
CPT/HCPCS: 36415; 70450; 71045; 80048; 80053; 83880; 84484; 85025; 90732; 93005; 96372; 96374; 96375; 99285; G0009; G0378; J0780; J1100; J1650; J1885; J2765